=== PATIENT | female | born 2000 | race Caucasian/White ===

== ENCOUNTER 2023-02-09 15:23 | Emergency (ER) | payer OTHER ==
[~2023-02-09] VITALS: Ht 149.8 cm; Wt 113.4 kg
[2023-02-09] MEDS ORDERED: MELOXICAM15 MG PO (18:03)
[2023-02-09] MEDS ORDERED: ZANAFLEX4 MG PO (18:03)
== END 2023-02-09 18:44 | disposition home or self-care (01) ==
LOC: ED 15:23
DX: M54.50 Low back pain, unspecified (principal); M54.2 Cervicalgia; Z88.2 Allergy status to sulfonamides

== ENCOUNTER 2023-03-09 13:39 | Emergency (ER) | payer OTHER, MEDICAID ==
[~2023-03-09] VITALS: Ht 147.3 cm; Wt 106.6 kg
[~2023-03-09 13:39] MED LIST: MELOXICAM15 MG PO; ZANAFLEX4 MG PO
[2023-03-09 14:58] LABS: BASO # 0.1 10*3/uL (0.0-0.1); BASO % 0.6 % (0.0-1.0); EOS # 0.3 10*3/uL (0.0-0.4); EOS % 3.6 % (1.0-4.0); HEMATOCRIT 44.9 % (37.0-47.0); LYMPH # 1.7 10*3/uL (1.3-4.4); LYMPH % 22.1 % (27.0-41.0); MEAN CELL VOLUME 87.4 fl (81.0-99.0); MEAN CORPUSCULAR HGB 29.8 pg (27.0-31.0); MEAN CORPUSCULAR HGB CONC 34.1 g/dl (33.0-37.0); MEAN PLATELET VOLUME 8.6 fl (9.6-12.3); MONO # 0.7 10*3/uL (0.1-1.0); MONO % 8.4 % (3.0-9.0); NEUT # 5.1 10*3/uL (2.3-7.9); NEUT % 64.9 % (47.0-73.0); PLATELET COUNT AUTOMATED 312 10*3/uL (130-400); RED BLOOD COUNT 5.14 10*6/uL (4.10-5.10); RED CELL DISTRI WIDTH 12.8 % (0-14.5); WHITE BLOOD COUNT 7.8 10*3/uL (4.8-10.8)
[2023-03-09 15:10] LABS: ACT PARTIAL THROMBO TIME 30.8 SECONDS (20.0-32.1)
[2023-03-09 15:16] LABS: ALKALINE PHOSPHATASE 153 U/L (46-116); BUN 8 mg/dl (9-23); CHLORIDE 110 mmol/L (98-107); POTASSIUM 3.7 mmol/L (3.4-5.1); SGPT/ALT 9 U/L (5-49); TOTAL PROTEIN 8.1 gm/dL (6.0-8.0)
[2023-03-09] MEDS ORDERED: HYDROCHLOROTH12.5 M2 PO (16:03)
== END 2023-03-09 17:03 | disposition home or self-care (01) ==
LOC: ED 13:39
PROVIDERS: Nurse Practitioner Family
DX: I10 Essential (primary) hypertension (principal); R42 Dizziness and giddiness; R07.89 Other chest pain; R53.83 Other fatigue; R11.0 Nausea; Z88.2 Allergy status to sulfonamides

== ENCOUNTER 2023-03-31 11:17 | Emergency (ER) | payer OTHER, MEDICAID ==
[~2023-03-31] VITALS: Ht 149.8 cm; Wt 120.2 kg
[~2023-03-31 11:17] MED LIST changes: +HYDROCHLOROTH12.5 M2 PO
== END 2023-03-31 15:57 | disposition home or self-care (01) ==
LOC: ED 11:17
DX: Z76.5 Malingerer [conscious simulation] (principal); R11.0 Nausea; F41.9 Anxiety disorder, unspecified; Z88.2 Allergy status to sulfonamides